=== PATIENT | male | born 1985 ===

== ENCOUNTER 2020-06-04 11:37 | Emergency (ER) | payer SELFPAY ==
[~2020-06-04] VITALS: Ht 170.2 cm; Wt 90.9 kg
[2020-06-04 11:59] VITALS: BP 127/76; Ht 170.2 cm; Wt 90.9 kg
[2020-06-04] MEDS ORDERED: NAPROSYN500 MG PO (14:09)
== END 2020-06-04 14:39 | disposition home or self-care (01) ==
LOC: D.ER 11:37
DX: S99.912A Unspecified injury of left ankle, initial encounter (principal); M25.472 Effusion, left ankle; W20.8XXA Other cause of strike by thrown, projected or falling object, initial encounter; Y93.9 Activity, unspecified; Y92.9 Unspecified place or not applicable